=== PATIENT | female | born 1950 | race Two or more races ===

== ENCOUNTER 2018-06-08 10:34 | Emergency (ER) | payer OTHER ==
[~2018-06-08] VITALS: Ht 160 cm; Wt 94.3 kg
[2018-06-08 10:52] VITALS: BP 138/63
[2018-06-08] MEDS ORDERED: KETOROLAC TROMETH 60MG/2ML VIAL IM ONE (11:30)
== END 2018-06-08 12:13 | disposition home or self-care (01) ==
LOC: ER 10:34
DX: S83.92XA Sprain of unspecified site of left knee, initial encounter (principal); Z88.1 Allergy status to other antibiotic agents; X50.0XXA Overexertion from strenuous movement or load, initial encounter; Y93.89 Activity, other specified; Y99.8 Other external cause status; Y92.89 Other specified places as the place of occurrence of the external cause; K21.9 Gastro-esophageal reflux disease without esophagitis
CPT/HCPCS: 73562; 93971; 96372; 99284; J1885